=== PATIENT | female | born 1965 | race Two or more races ===

== ENCOUNTER → 2017-10-16 20:17 | Outpatient (CLI) | payer SELFPAY ==
--- NOTE | 2017-10-16 20:17 | DT_ITS ---
This patient was seen during an EMR downtime October 10, 2017 - October 17, 2017. This patient may have a combination of paper and electronic documentation or all paper documentation. All documentation is viewable within the e-chart portion of [employer] for each patient visit.
[2017-10-16 20:52] LABS: Bedside Glucose 111 mg/dL (70-110)
[2018-11-29 07:06] LABS: ACT Activated Clotting Time 125 sec (74-137)
== END ==
DX: Z00.00 Encounter for general adult medical examination without abnormal findings (principal)
CPT/HCPCS: 82962; 85347